=== PATIENT | male | born 1965 | race Caucasian/White ===

== ENCOUNTER 2024-09-22 07:17 | Inpatient (IN) ==
--- NOTE | 2024-09-22 08:16 | History & Physical Report ---
Date of Service September 22, 2024 Assessment & Plan (1) Wide-complex tachycardia: Plan EPS and possible ablation or ICD History of Present Illness Primary Care Provider: Yossi Rojo MD Patient with a wide-complex tachycardia and symptoms here for EPS and possible ICD Allergies Allergy/AdvReac Type Severity Reaction Status Date / Time acetaminophen [From Percocet] Allergy Unknown Unknown Verified 09/22/24 07:57 oxycodone [From Percocet] Allergy Unknown Unknown Verified 09/22/24 07:57 hayfever Allergy Unknown Unresponsiv Uncoded 09/22/24 07:57 e Home Medications Medication Instructions Recorded Confirmed Type atorvastatin 20 mg tablet 20 mg PO QPM 08/07/21 09/22/24 History diclofenac sodium 75 mg 75 mg PO BID 08/07/21 09/22/24 History tablet,delayed release docusate sodium 100 mg capsule 100 mg PO DAILY 08/07/21 09/22/24 History duloxetine 60 mg capsule,delayed 60 mg PO DAILY 08/07/21 09/22/24 History release levothyroxine 125 mcg capsule 125 mcg PO DAILY 08/07/21 09/22/24 History metformin 1,000 mg tablet 1,000 mg PO BID 08/07/21 09/22/24 History omeprazole 40 mg capsule,delayed 40 mg PO DAILY 08/07/21 09/22/24 History release finasteride 5 mg tablet 5 mg PO DAILY 04/17/23 09/22/24 History glimepiride 1 mg tablet 1 mg PO DAILY 04/17/23 09/22/24 History metoprolol tartrate 50 mg tablet 50 mg PO BID 04/17/23 09/22/24 History prazosin 1 mg capsule 1 mg PO HS 04/17/23 07/19/24 History lisinopril 10 mg tablet 10 mg PO DAILY 05/27/23 09/22/24 History Past Med/Surg History Problem List (Updated 07/19/24 @ 16:41 by Rick Raymond MD) Wide-complex tachycardia NSVT (nonsustained ventricular tachycardia) Encounter for interrogation of cardiac recorder Abnormal electrocardiogram Right bundle branch block Reflex sympathetic dystrophy of right leg Mild tricuspid regurgitation AZALEA (obstructive sleep apnea) History of cardiac catheterization Syncope Nonsustained supraventricular tachycardia Palpitations Acquired deviated nasal septum Hypothyroidism GERD (gastroesophageal reflux disease) Persistent depressive disorder Type 2 diabetes mellitus Testicular hypofunction Hypertension Hyperlipemia Neuropathy Chinchilla's esophagus with dysplasia, unspecified Medical History Sialoadenitis of submandibular gland Enlarged lymph nodes Inguinal hernia Umbilical hernia Urinary retention History of dental abscess Vertigo Dizziness Surgical History Surgical history unknown Family History Other Family history unknown Social History Smoking Status: Never smoker Second Hand Exposure: No; Hx Alcohol Use: No Hx Substance Use: No Preferred Language: Omani Communication Ability: Effective Beliefs That Will Affect Care: None marital status: Unknown Current Living Situation: Other Current Living Situation Comment: Incarcerated @ [facility] current occupational status: unemployed Assistive Devices: None Physical Exam Physical Exam: Alert. Oriented Normal respiratory effort Regular rhythm Results & Data Results & Data Vital Signs (Past 12 Hours) Vital Signs Pulse Resp BP Pulse Ox O2 Del Method 09/22/24 07:35 81 14 158/102 H 98 Room Air
--- NOTE | 2024-09-22 08:21 | Pre Anesthesia Assessment ---
Date of Service September 22, 2024 Pre Sedation Assessment Vital Signs Pulse Resp BP Pulse Ox O2 Del Method 09/22/24 07:35 81 14 158/102 H 98 Room Air Cardiovascular + regular rate and + regular rhythm Respiratory + respiratory effort normal Pre-Sedation Airway Assessment Smoking Status: Never smoker Hx Sleep Apnea: No Hx Difficult Intubation: No Short, Thick Neck: No Thyromental Distance: > or= 3.5 Finger Breadths Oral Cavity: + Dental Abnormalities Mallampati Class: III ASA: ASA3 NPO Status Date of Last Intake of Fluids: 09/21/24 Time of Last Intake of Fluids: 16:30 Date of Last Intake of Solid Food: 09/21/24 Time of Last Intake of Solid Foods: 16:30 Procedure Planning Contraindications for Sedation: none Current Medications Reviewed: Yes Notes The planned sedation has been discussed with the patient. Informed Consent was obtained. I have identified the patient, determined the appropriateness of sedation and have assessed the patient immediately prior to the procedure. All medicine(s) and interventions are by my order.
[2024-09-22] MEDS: WATER, STERILE FOR INJ 10 ML VIAL ONE (10:50)
[2024-09-22] MEDS: VANCOMYCIN HCL 1000MG/20ML VIAL ONE (10:50)
[2024-09-22] MEDS: LIDOCAINE 1% LOCAL 20 ML VIAL ONE ×2 (10:50→10:51)
[2024-09-22] MEDS: BUPIVACAINE 0.25% PF 30 ML VIAL ONE (10:50)
[2024-09-22] MEDS: ceFAZolin 330 MG/ML 1 GM VIAL ONE ×2 (10:51)
[2024-09-22] MEDS: ISOPROTERENOL HCL 0.2 MG/ML 5 ML AMP IV ONE (10:51)
[2024-09-22] MEDS: MIDAZOLAM HCL 5 MG/ML 1 ML VIAL ONE ×2 (11:18→11:19)
--- NOTE | 2024-09-22 11:24 | Electrophysiology Report ---
Date of Service September 22, 2024 Electrophysiology Procedure Electrophysiology Procedure Report Procedure performed: Implantation of dual-chamber ICD Staff repair weaver: Rick Raymond MD Indication: Patient is a 58-year-old gentleman with a history of wide-complex tachycardia and syncope. Immediately prior to this procedure he underwent electrophysiologic testing which did not reveal any mechanism for an SVT. Wide- complex tachycardia was therefore felt to be sustained ventricular tachycardia. ICD was recommended a secondary prevention. Procedure in detail The patient was informed the risk benefits and alternatives to the intended procedure. He understood and wished to proceed. He is taken to the electrophysiology suite in a fasting state. Preoperative antibiotic was administered. Conscious station was administered per protocol and the patient was monitored electrocardiography throughout today's procedure. The left upper pectoral area was prepped and draped in usual sterile fashion. This area was anesthetized using subcutaneous ministration of lidocaine and Marcaine solution. An incision was made at the site and carried down to the prepectoralis fossa using sharp dissection. Electrocautery was also planned for dissection as well as for hemostasis. A device pocket was fashioned and the tissues above the pectoralis muscle. Subsequent to this maneuver the left axillary vein was accessed twice using modified center technique. Sheath were placed over guidewires at the site and facilitated the passage of the leads to the respective chambers and for scopic guidance. This included right ventricular and right atrial leads. Adequate sensing and threshold parameters were obtained prior to active-fixation leads to the endocardial surface. The proximal portion of the leads was then sutured to the prepectoralis fossa using nonabsorbable suture. The device pocket was irrigated with an antibiotic solution. The leads were attached to the device. The device and leads were then placed in the pocket and the pocket was closed in 3 layers of absorbable suture. Steri-Strips and sterile dressing were applied. The device was tested noninvasively prior to inclusion the procedure. The patient tolerated the procedure well. There were no immediate complications. Equipment used: Pulse generator: Hat Block Bench Hand [employer]. Model number [id number] serial number [id number] Right atrial lead: Hat Block Bench Hand Medtronic. Model #5076 serial number [id number] Right ventricular lead: Hat Block Bench Hand [employer]. Model number [id number] serial number [id number] Measured data: Right atrial lead: P waves measured 3.5 mV. Pacing threshold was 1.25 V at 0.4 ms with a pacing impedance of 418 ohms Right ventricular lead: R waves measured 6.5 mV. Pacing threshold is 0.5 V at 0.4 ms with a pacing PINS of 437 ohms Impression: Successful implantation of dual-chamber ICD [facility] Electrophysiology codes ICD Procedure 1: ICD: 27861 Insert single or dual ICD system PG Moderate Sedation Codes Moderate Sedation Codes Procedure 1: Sedation/Anesthesia: 14497 Mod Sedation by the same physician;Init15 Min Child Age 5 & Up Procedure 2: Sedation/Anesthesia: 95275 Mod Sedation by the same physician; Ea [id number] Minutes
--- NOTE | 2024-09-22 11:24 | Electrophysiology Report ---
Date of Service September 22, 2024 Electrophysiology Procedure Electrophysiology Procedure Report Procedure performed: Complete electrophysiologic testing including pacing of the left atrium via the coronary sinus, arrhythmia induction using programmed stimulation, ultrasound-guided vascular access Staff software development specialist: Rick Raymond MD Indication: The patient is a 58-year-old gentleman with a prior history of syncope and palpitations who had previously undergone implantation of a patient activated loop recorder. He was noted recently to have a sustained wide-complex tachycardia associated with dizziness and presyncope. He is brought to the electrophysiology suite for testing to determine if this was an SVT versus VT. Procedure detail: The patient was informed of the risks benefits and alternatives to the intended procedure. He understood and wished to proceed. He was taken to the electrophysiology suite in a fasting state. Conscious sedation was administered per protocol and the patient was monitored electrocardiography throughout today's procedure. The right internal jugular and right femoral areas were prepped draped in usual sterile fashion. These areas were anesthetized with subcutaneous ministration of lidocaine and Marcaine solution. The right interna l jugular vein was subsequently accessed using modified center technique under ultrasound guidance and a 6 Moroc[place] venous sheath was placed over guidewire at the site. The right femoral vein was then accessed 3 times using modified Seldinger technique. Sheaths were placed over guidewires at this site. These sheaths were used to facilitate the passage of the EP catheters to the respective chambers under fluoroscopic guidance. This included right ventricular, His bundle and coronary sinus catheters. The patient's baseline conduction system was characterized. Attempted arrhythmia induction were then made using programmed stimulation and burst atrial pacing on and off isoproterenol. No arrhythmia was inducible. At the conclusion of the case the catheters and sheaths were removed. Hemostasis was achieved at the access site using manual pressure. The patient tolerated the procedure well. There were no immediate complications. Findings Baseline intracardiac intervals Arrhythmia induction Programmed stimulation from the atrium was performed on and off isoproterenol. Burst atrial pacing was also performed. There were no inducible arrhythmias. No echo beats or evidence of dual AV mere physiology. Impression: Normal electrophysiologic testing without evidence of accessory pathway conduction or dual AV mere physiology No inducible tachycardia [facility] Electrophysiology codes EP Procedure 1: Electrophysiology: 08522 Comp EPS with induction Procedure 2: Electrophysiology: 91432-97 Comp EPS w/LA pacing Procedure 3: Electrophysiology: 22453 Drug Stimulation Procedure 4: Electrophysiology: 69985 Arrhythmia induction PG Moderate Sedation Codes Moderate Sedation Codes Procedure 1: Sedation/Anesthesia: 37330 Mod Sedation by the same physician;Init15 Min Child Age 5 & Up Procedure 2: Sedation/Anesthesia: 86481 Mod Sedation by the same physician; Ea [id number] Minutes
--- NOTE | 2024-09-22 11:25 | Post Anesthesia Assessment ---
Date of Service September 22, 2024 Post Sedation Assessment Vital Signs Pulse Resp BP Pulse Ox O2 Del Method 09/22/24 07:35 81 14 158/102 H 98 Room Air Recovery Score Activity: Moves 4 extremities Respiration: Deep Breath/Cough Circulation: +/-20% PreAnes Value Consciousness: Fully Awake Oxygen Saturation: O2 needed for >90% Discharge Sedation Level of Care: Fast Track Phase II Post Sedation Plan On clinical assessment, the patient appears to have tolerated the sedation without complications. Patient is recovering as anticipated. Patient will continue to be monitored by nursing and may be discharged when sedation discharge criteria are met per below protocol. Upon Completions of procedure up to 15 minutes continue every 5 minute vital signs and the P.A.R. score; then discharge to a Phase I or Fast Track to Phase II per the following guidelines: * Discharge Patient to appropriate Phase II area if PAR is 8 or greater or return to pre- procedure baseline. The post - procedure orders will be as directed. * If PAR score is less than 8 or not return to pre-procedure baseline then patient will follow Phase I monitoring till PAR is reached for Phase II. The Phase I may be done in procedure room or may call to secure a Phase I area. * If naloxone or flumazenil are used for reversal, hold in Phase I for continued monitoring from when last reversal dose was given for a minimum of 60 minutes or longer pending the nurse and/or physician discretion of patient condition before discharge to Phase II. Please call the Sedation Physician to re-evaluate and complete post-note for discharge to Phase II area. Do NOT discharge from procedure sedation or Phase 1 until post- sedation evaluation note is complete by procedure /sedation MD Sedation Discharge Instructions to be given to the patient at discharge to home.
[2024-09-22 12:32] VITALS: RESP 18
[2024-09-22] MEDS: ACETAMINOPHEN 500 MG TAB PO PRN (18:32)
[2024-09-22] MEDS: DICLOFENAC SODIUM 75 MG TABCR PO SCH (21:34)
[2024-09-22] MEDS: ATORVASTATIN 20 MG TAB PO SCH (21:34)
[2024-09-22] MEDS: METOPROLOL TARTRATE 50 MG TAB PO SCH (21:35)
[2024-09-23] MEDS: LEVOTHYROXINE SODIUM 125 MCG TABLET PO SCH (06:08)
--- NOTE | 2024-09-23 07:30 | Discharge Summary ---
Date of Service September 23, 2024 Admission HPI Per Admitting Provider Patient with a wide-complex tachycardia and symptoms here for EPS and possible ICD Principal Diagnosis Ventricular tachycardia Discharge Exam Alert. oriented Normal respiratory effort Regular rhythm Device implant site with only minor ecchymosis. No hematoma. No bleeding Discharge Data Allergies Allergy/AdvReac Type Severity Reaction Status Date / Time acetaminophen [From Percocet] Allergy Unknown Unknown Verified 09/22/24 07:57 oxycodone [From Percocet] Allergy Unknown Unknown Verified 09/22/24 07:57 hayfever Allergy Unknown Unresponsiv Uncoded 09/22/24 07:57 e Procedures Performed Operation Date: 09/22/24 08:00 Actual Procedures p Drug Stimulation - Rick Raymond MD p EPS w/o Induction (RA,HIS,RV) - Rick Raymond MD p ICD Insertion Single or Dual - Rick Raymond MD Ordered Studies 09/22/24 07:30 EP Lab Images for PACS ONCE Hospital Course (1) Wide-complex tachycardia: Plan On the day of admission the patient underwent EP testing which did not reveal any SVT or substrate for SVT. Decision was made to implant a dual chamber Medtronic ICD for a documented wide-complex tachycardia presumed to be VT. Previously implanted loop recorder was removed. On the day of admission the patient was comfortable. No evident complication. Device interrogation revealed normal function. Chest xray with stable lead position and no PTX Total Time Total Time Spent Total Time Spent (In Minutes): 20 Discharge Plan Discharge Items [facility] Disposition: [facility] Reason For Visit: ICD INPLANT Discharge Diagnosis: ventricular tachycardia Activity: Per Instructions section Activity Comment: No lifting left arm above shoulder or behind neck for 6 weeks Lifting: No more than 10 pounds Bathing: Keep incision dry Bathing Comment: Keep wound dry and steri-strip intact for 7 days Non-emergency contact: Securities Lending Trader Call non-emergency contact if: your pain is worsening, you have a fever, your wound has increased drainage and your wound pain has increased Follow-up/Referrals: Bon AZEVEDO [Primary Care Provider] - Diet: Carb Consistent or DM2 Addtl Attending Provider Instructions: none Pending Studies at Discharge: No Stand-Alone Forms: My [facility] Skilled Items Patient informed of condition?: Yes Discharge Level of Care: Other Communicable Disease: No Discharge Prognosis: Stable Lines: None Urinary Catheter: No Medications and DC Order Prescriptions: Continued lisinopril 10 mg tablet 10 mg PO DAILY omeprazole 40 mg capsule,delayed release(DR/EC) 40 mg PO DAILY docusate sodium 100 mg capsule 100 mg PO DAILY atorvastatin 20 mg tablet 20 mg PO QPM duloxetine 60 mg capsule,delayed release(DR/EC) 60 mg PO DAILY levothyroxine 125 mcg capsule 125 mcg PO DAILY metformin 1,000 mg tablet 1,000 mg PO BID diclofenac sodium 75 mg tablet,delayed release (DR/EC) 75 mg PO BID prazosin 1 mg Capsule 1 mg PO HS glimepiride 1 mg Tablet 1 mg PO DAILY metoprolol tartrate 50 mg Tablet 50 mg PO BID Rx Instructions: to total 75 mg finasteride 5 mg Tablet 5 mg PO DAILY Discharge Orders: Discharge Order (Routine); Ordered 09/23/24 Ordered By: Rick Raymond Admission Data Admit Date/Time: 09/22/24 10:47 Attending Provider: Rick Raymond Admit Provider: Rick Raymond Primary Care Provider: Bon AZEVEDO Coding Level of Care Code 53288 Post Operative Follow-Up Diagnoses Wide-complex tachycardia R00.0
[2024-09-23 08:10] VITALS: BP 155/84; PULSE 87; TEMP 97.5; O2SAT 96
--- NOTE | 2024-09-23 08:11 | XRay Report ---
HISTORY: Follow-up. TECHNIQUE: PA and lateral views of the chest. COMPARISON: Chest CT dated 03/18/2021. FINDINGS: Left subclavian approach dual-lead pacer/AICD. Lungs are clear. No pneumothorax or effusion. Normal heart size. Left-sided aortic arch. Midline trachea. No acute osseous abnormality. Included upper abdomen is unremarkable. IMPRESSION: No acute cardiopulmonary findings. Electronically signed by Fred Joiner 09-23-2024 08:11 AM
[2024-09-23] MEDS: GLIMEPIRIDE 2 MG TAB PO SCH (09:03)
[2024-09-23] MEDS: FINASTERIDE 5 MG TAB PO SCH (09:04)
[2024-09-23] MEDS: DOCUSATE SODIUM 100 MG CAP PO SCH (09:08)
== END 2024-09-23 13:44 | DRG 277 ==
LOC: EP 07:17 → 2S 10:47
PROC: EPB.ICD (2024-09-22 08:00)
DX: Z88.5 Allergy status to narcotic agent; Z79.890 Hormone replacement therapy; R55 Syncope and collapse; Z79.84 Long term (current) use of oral hypoglycemic drugs; E03.9 Hypothyroidism, unspecified; I47.29 Other ventricular tachycardia